=== PATIENT | male | born 1965 | race Caucasian/White ===

== ENCOUNTER 2016-10-07 16:06 | Inpatient (IN) | payer MEDICARE, OTHER ==
[~2016-10-07] VITALS: Ht 170.2 cm; Wt 67.8 kg
[~2016-10-07 16:06] MED LIST: ASPIRIN EC81 MG PO; CALCIUM ACETAT667 M1 PO; CATAPRES 0.1MG0.1 MG PO; CELEXA10 MG PO; CILOSTAZOL50 MG PO; CLINDAMYCIN HC300 MG PO; COREG 12.5MG12.5 MG PO; COREG 25MG TAB25 MG PO; CREON DR 24,001 EACH PO; ENDOCET 5-3251 EACH PO; FLORASTOR250 MG PO; HYDRALAZINE HCL50 MG PO; MEGACE TAB 40 M40 MG PO; NEURONTIN 300300 MG PO; NEXIUM40 MG PO; PLAVIX75 MG PO; REQUIP1 MG PO; SEROQUEL25 MG PO; SYNTHROID150 MCG PO; TIZANIDINE HCL4 MG PO
[2016-10-07 21:41] LABS: HEMOGLOBIN 8.2 gm/dl (14.0-17.5); RED BLOOD COUNT 2.64 M/UL (4.20-5.50); WHITE BLOOD COUNT 16.9 K/UL (4.5-11.0)
[2016-10-08 05:15] LABS: HEMOGLOBIN 7.5 gm/dl (14.0-17.5); RED BLOOD COUNT 2.46 M/UL (4.20-5.50); WHITE BLOOD COUNT 13.6 K/UL (4.5-11.0)
[2016-10-09 05:09] LABS: HEMOGLOBIN 7.7 gm/dl (14.0-17.5); RED BLOOD COUNT 2.5 M/UL (4.20-5.50); WHITE BLOOD COUNT 12.4 K/UL (4.5-11.0)
[2016-10-12 06:05] LABS: HEMOGLOBIN 7.5 gm/dl (14.0-17.5); RED BLOOD COUNT 2.48 M/UL (4.20-5.50); WHITE BLOOD COUNT 11.3 K/UL (4.5-11.0)
[2016-10-13 05:04] LABS: HEMOGLOBIN 7.4 gm/dl (14.0-17.5); RED BLOOD COUNT 2.42 M/UL (4.20-5.50); WHITE BLOOD COUNT 12.5 K/UL (4.5-11.0)
[2016-10-14 05:20] LABS: HEMOGLOBIN 7.4 gm/dl (14.0-17.5); RED BLOOD COUNT 2.43 M/UL (4.20-5.50)
[2016-10-14] MEDS ORDERED: CIPRO500 MG PO (11:28)
[2016-10-14] MEDS ORDERED: LIPITOR TAB 2020 MG PO (11:28)
[2016-10-14] MEDS ORDERED: FOLIC ACID 1 MG1 MG PO (11:29)
[2016-10-14] MEDS ORDERED: PERCOCET 5-3251 EACH PO (11:29)
[2016-10-14] MEDS ORDERED: NEPRO CARB ST1000 ML PO (11:30)
[2016-10-14] MEDS ORDERED: [UNRECOGNIZED DRUG - CODE] INJ (13:07)
[2016-10-14] MEDS ORDERED: NOVOLOG100 UNIT/1 SQ (13:09)
== END 2016-10-14 13:50 | disposition home or self-care (01) | DRG 299 ==
LOC: ER1 16:06 → MED SURG 4 22:30 → ZEROF 22:30 → MED SURG 4 10-08 00:25
PROVIDERS: Emergency Medicine; Internal Medicine; Internal Medicine Nephrology; Physician Assistant; ADMIT Internal Medicine
DX: E11.52 Type 2 diabetes mellitus with diabetic peripheral angiopathy with gangrene (principal); N18.6 End stage renal disease; L03.115 Cellulitis of right lower limb; L03.116 Cellulitis of left lower limb; E11.65 Type 2 diabetes mellitus with hyperglycemia; Z99.2 Dependence on renal dialysis; D63.1 Anemia in chronic kidney disease; Z79.4 Long term (current) use of insulin; M79.604 Pain in right leg; M79.605 Pain in left leg; S80.821A Blister (nonthermal), right lower leg, initial encounter; S80.822A Blister (nonthermal), left lower leg, initial encounter; Z98.890 Other specified postprocedural states; E03.9 Hypothyroidism, unspecified; Z86.73 Personal history of transient ischemic attack (TIA), and cerebral infarction without residual deficits; K21.9 Gastro-esophageal reflux disease without esophagitis; Z88.5 Allergy status to narcotic agent; Z88.1 Allergy status to other antibiotic agents; Z82.49 Family history of ischemic heart disease and other diseases of the circulatory system; Z82.5 Family history of asthma and other chronic lower respiratory diseases; F17.210 Nicotine dependence, cigarettes, uncomplicated; I87.393 Chronic venous hypertension (idiopathic) with other complications of bilateral lower extremity; D47.3 Essential (hemorrhagic) thrombocythemia; Z79.899 Other long term (current) drug therapy; Z79.02 Long term (current) use of antithrombotics/antiplatelets
CPT/HCPCS: 36415; 73590; 73630; 80048; 80053; 80202; 82962; 83605; 83735; 85025; 85027; 86140; 87040; 96374; 96375; 99284; J0885; J1335; J1644; J2270; J2405; J2550; J3370; J7050; J7070

== ENCOUNTER 2016-10-19 05:15 | Inpatient (IN) | payer MEDICARE, OTHER ==
[~2016-10-19] VITALS: Ht 170.2 cm; Wt 70.4 kg
[~2016-10-19 05:15] MED LIST changes: +CIPRO500 MG PO; +FOLIC ACID 1 MG1 MG PO; +LIPITOR TAB 2020 MG PO; +NEPRO CARB ST1000 ML PO; +NOVOLOG100 UNIT/1 SQ; +PERCOCET 5-3251 EACH PO; +[UNRECOGNIZED DRUG - CODE] INJ
[2016-10-19 06:42] LABS: HEMOGLOBIN 8.3 gm/dl (14.0-17.5); RED BLOOD COUNT 2.7 M/UL (4.20-5.50); WHITE BLOOD COUNT 18.1 K/UL (4.5-11.0)
[2016-10-19] MEDS ORDERED: MEGACE400 MG/10 PO (14:10)
[2016-10-19] MEDS ORDERED: PHOSLO 667 MG667 MG PO ×2 (14:11→14:12)
[2016-10-20 04:40] LABS: WHITE BLOOD COUNT 10.6 K/UL (4.5-11.0)
[2016-10-20 04:41] LABS: RED BLOOD COUNT 1.91 M/UL (4.20-5.50)
[2016-10-21 02:53] LABS: HEMOGLOBIN 9.2 gm/dl (14.0-17.5); RED BLOOD COUNT 3.05 M/UL (4.20-5.50); WHITE BLOOD COUNT 15.7 K/UL (4.5-11.0)
[2016-10-22 04:25] LABS: HEMOGLOBIN 9.6 gm/dl (14.0-17.5); RED BLOOD COUNT 3.22 M/UL (4.20-5.50)
--- NOTE | 2016-10-23 01:17 | NUR ---
10/22/162114 PT IS BEING VERY ANXIOUS, TALKING ON THE TV CONTROLLER LIKE IT IS A TELEPHONE. CARRYING ON CONVERSATIONS WITH HIMSELF. ANGRY THAT HIS IS NOT UP HERE. ALTERNATING BETWEEEN ANGRY, ANXIOUS, CRYING, PARANOIA AND HALLUCINATIONS. ATTEMPT TO GET HIM TO EAT BUT REFUSES. WANTS TO GO HOME. THINKS HE SEES HIS IN THE CONDE.
[2016-10-24 05:51] LABS: HEMOGLOBIN 9.2 gm/dl (14.0-17.5)
[2016-10-26 05:57] LABS: HEMOGLOBIN 9.5 gm/dl (14.0-17.5); RED BLOOD COUNT 3.19 M/UL (4.20-5.50); WHITE BLOOD COUNT 11.2 K/UL (4.5-11.0)
[2016-10-27 05:14] LABS: HEMOGLOBIN 9.4 gm/dl (14.0-17.5); RED BLOOD COUNT 3.16 M/UL (4.20-5.50); WHITE BLOOD COUNT 12.3 K/UL (4.5-11.0)
== END 2016-10-27 21:42 | disposition home or self-care (01) | DRG 299 ==
LOC: ER1 05:15 → ZEROF 10:45 → PROG CARE 10:45 → M/S 10:45 → PROG CARE 13:01 → M/S 10-23 16:19
PROVIDERS: Emergency Medicine; Hospitalist; Internal Medicine Infectious Disease; Internal Medicine Nephrology; Surgery; ADMIT Internal Medicine
PROC: 5A1D60Z (ICD-10-PCS; 2016-10-19)
PROC: 04HK33Z Insertion of Infusion Device into Right Femoral Artery, Percutaneous Approach (ICD-10-PCS; 2016-10-19)
PROC: B54BZZA Ultrasonography of Right Lower Extremity Veins, Guidance (ICD-10-PCS; 2016-10-19)
PROC: 30233N1 Transfusion of Nonautologous Red Blood Cells into Peripheral Vein, Percutaneous Approach (ICD-10-PCS; 2016-10-20)
PROC: 30233N1 Transfusion of Nonautologous Red Blood Cells into Peripheral Vein, Percutaneous Approach (ICD-10-PCS; 2016-10-20)
PROC: 0DJ08ZZ Inspection of Upper Intestinal Tract, Via Natural or Artificial Opening Endoscopic (ICD-10-PCS; 2016-10-23)
PROC: 02HV33Z Insertion of Infusion Device into Superior Vena Cava, Percutaneous Approach (ICD-10-PCS; 2016-10-26)
PROC: B518ZZA Fluoroscopy of Superior Vena Cava, Guidance (ICD-10-PCS; 2016-10-26)
PROC: 0JH63XZ Insertion of Tunneled Vascular Access Device into Chest Subcutaneous Tissue and Fascia, Percutaneous Approach (ICD-10-PCS; principal; 2016-10-26 15:45)
DX: E10.52 Type 1 diabetes mellitus with diabetic peripheral angiopathy with gangrene (principal); G93.41 Metabolic encephalopathy; N18.6 End stage renal disease; I70.263 Atherosclerosis of native arteries of extremities with gangrene, bilateral legs; I12.0 Hypertensive chronic kidney disease with stage 5 chronic kidney disease or end stage renal disease; K22.10 Ulcer of esophagus without bleeding; N17.9 Acute kidney failure, unspecified; L97.429 Non-pressure chronic ulcer of left heel and midfoot with unspecified severity; L97.419 Non-pressure chronic ulcer of right heel and midfoot with unspecified severity; I85.10 Secondary esophageal varices without bleeding; K76.6 Portal hypertension; E10.65 Type 1 diabetes mellitus with hyperglycemia; E10.21 Type 1 diabetes mellitus with diabetic nephropathy; E10.22 Type 1 diabetes mellitus with diabetic chronic kidney disease; E10.621 Type 1 diabetes mellitus with foot ulcer; D63.1 Anemia in chronic kidney disease; K70.30 Alcoholic cirrhosis of liver without ascites; D50.9 Iron deficiency anemia, unspecified; E03.9 Hypothyroidism, unspecified; E78.5 Hyperlipidemia, unspecified; K21.9 Gastro-esophageal reflux disease without esophagitis; K31.84 Gastroparesis; G25.3 Myoclonus; F17.210 Nicotine dependence, cigarettes, uncomplicated; R62.7 Adult failure to thrive; J32.9 Chronic sinusitis, unspecified; Z99.2 Dependence on renal dialysis; Z98.62 Peripheral vascular angioplasty status; Z96.41 Presence of insulin pump (external) (internal); Z86.73 Personal history of transient ischemic attack (TIA), and cerebral infarction without residual deficits; Z79.02 Long term (current) use of antithrombotics/antiplatelets; Z79.82 Long term (current) use of aspirin; Z79.891 Long term (current) use of opiate analgesic; Z79.899 Other long term (current) drug therapy; Z88.5 Allergy status to narcotic agent; Z88.0 Allergy status to penicillin; Z98.890 Other specified postprocedural states; Z82.49 Family history of ischemic heart disease and other diseases of the circulatory system; Z83.3 Family history of diabetes mellitus; Z82.5 Family history of asthma and other chronic lower respiratory diseases
CPT/HCPCS: 36415; 70450; 71010; 73630; 73718; 76705; 77001; 80048; 80053; 80202; 82140; 82962; 83605; 83735; 84132; 84484; 85014; 85018; 85025; 85027; 85610; 85730; 86140; 86850; 86900; 86901; 86920; 87040; 90935; 90937; 93005; 93925; 99285; C1752; C1769; J0885; J1630; J1642; J1644; J1650; J1817; J1956; J2060; J2250; J2270; J2550; J3010; J3370; J3430; J7030; J7040; J7050; J7070; J7120; P9016; P9047

== ENCOUNTER 2016-11-24 22:14 | Inpatient (IN) | payer MEDICARE, OTHER ==
[~2016-11-24] VITALS: Ht 170.2 cm; Wt 69.4 kg
[~2016-11-24 22:14] MED LIST changes: +MEGACE400 MG/10 PO; +PHOSLO 667 MG667 MG PO
[2016-11-25 03:19] LABS: HEMOGLOBIN 8.9 gm/dl (14.0-17.5); RED BLOOD COUNT 2.96 M/UL (4.20-5.50); WHITE BLOOD COUNT 13.9 K/UL (4.5-11.0)
[2016-11-26 06:02] LABS: HEMOGLOBIN 9.6 gm/dl (14.0-17.5); RED BLOOD COUNT 3.17 M/UL (4.20-5.50); WHITE BLOOD COUNT 11.1 K/UL (4.5-11.0)
[2016-11-27 07:47] LABS: HEMOGLOBIN 9.7 gm/dl (14.0-17.5); RED BLOOD COUNT 3.22 M/UL (4.20-5.50)
[2016-11-27 07:52] LABS: WHITE BLOOD COUNT 16.6 K/UL (4.5-11.0)
[2016-11-28 04:28] LABS: RED BLOOD COUNT 2.48 M/UL (4.20-5.50); WHITE BLOOD COUNT 12.2 K/UL (4.5-11.0)
[2016-11-28 04:29] LABS: HEMOGLOBIN 7.4 gm/dl (14.0-17.5)
[2016-11-28 13:51] LABS: HEMOGLOBIN 7.6 gm/dl (14.0-17.5); RED BLOOD COUNT 2.54 M/UL (4.20-5.50); WHITE BLOOD COUNT 13.4 K/UL (4.5-11.0)
[2016-11-29 06:39] LABS: WHITE BLOOD COUNT 13.3 K/UL (4.5-11.0)
[2016-11-29 06:40] LABS: HEMOGLOBIN 9.6 gm/dl (14.0-17.5); RED BLOOD COUNT 3.19 M/UL (4.20-5.50)
[2016-11-30 04:14] LABS: HEMOGLOBIN 9.4 gm/dl (14.0-17.5); RED BLOOD COUNT 3.14 M/UL (4.20-5.50); WHITE BLOOD COUNT 14.6 K/UL (4.5-11.0)
[2016-12-01 05:04] LABS: HEMOGLOBIN 8.4 gm/dl (14.0-17.5); WHITE BLOOD COUNT 13.3 K/UL (4.5-11.0)
[2016-12-01 05:07] LABS: RED BLOOD COUNT 2.81 M/UL (4.20-5.50)
[2016-12-02 05:33] LABS: HEMOGLOBIN 8.2 gm/dl (14.0-17.5); RED BLOOD COUNT 2.71 M/UL (4.20-5.50); WHITE BLOOD COUNT 11.9 K/UL (4.5-11.0)
== END 2016-12-02 16:30 | DRG 239 ==
LOC: ER1 22:14 → ZEROF 11-25 06:55 → M/S 11-25 06:55
PROVIDERS: Emergency Medicine; Internal Medicine; Internal Medicine Infectious Disease; Internal Medicine Nephrology; Orthopaedic Surgery; ADMIT Internal Medicine
PROC: 5A1D60Z (ICD-10-PCS; 2016-11-25)
PROC: 0Y6J0Z3 Detachment at Left Lower Leg, Low, Open Approach (ICD-10-PCS; principal; 2016-11-27 10:30)
PROC: 30233N1 Transfusion of Nonautologous Red Blood Cells into Peripheral Vein, Percutaneous Approach (ICD-10-PCS; 2016-11-28)
DX: E10.52 Type 1 diabetes mellitus with diabetic peripheral angiopathy with gangrene (principal); N18.6 End stage renal disease; I12.0 Hypertensive chronic kidney disease with stage 5 chronic kidney disease or end stage renal disease; I70.263 Atherosclerosis of native arteries of extremities with gangrene, bilateral legs; L97.429 Non-pressure chronic ulcer of left heel and midfoot with unspecified severity; L97.419 Non-pressure chronic ulcer of right heel and midfoot with unspecified severity; D62 Acute posthemorrhagic anemia; E46 Unspecified protein-calorie malnutrition; E10.22 Type 1 diabetes mellitus with diabetic chronic kidney disease; E10.621 Type 1 diabetes mellitus with foot ulcer; E10.65 Type 1 diabetes mellitus with hyperglycemia; D63.1 Anemia in chronic kidney disease; J44.9 Chronic obstructive pulmonary disease, unspecified; E03.9 Hypothyroidism, unspecified; E78.5 Hyperlipidemia, unspecified; K21.9 Gastro-esophageal reflux disease without esophagitis; G62.9 Polyneuropathy, unspecified; F17.200 Nicotine dependence, unspecified, uncomplicated; Z99.2 Dependence on renal dialysis; Z86.73 Personal history of transient ischemic attack (TIA), and cerebral infarction without residual deficits; Z96.41 Presence of insulin pump (external) (internal); Z68.23 Body mass index [BMI] 23.0-23.9, adult; Z99.81 Dependence on supplemental oxygen; Z79.02 Long term (current) use of antithrombotics/antiplatelets; Z79.818 Long term (current) use of other agents affecting estrogen receptors and estrogen levels; Z79.891 Long term (current) use of opiate analgesic; Z79.82 Long term (current) use of aspirin; Z79.899 Other long term (current) drug therapy; Z88.5 Allergy status to narcotic agent; Z88.0 Allergy status to penicillin; Z88.8 Allergy status to other drugs, medicaments and biological substances; Z98.890 Other specified postprocedural states
CPT/HCPCS: 36415; 71010; 73630; 80048; 80053; 80202; 82728; 82962; 83036; 83540; 83550; 83605; 83690; 84100; 84443; 84466; 85025; 85027; 85610; 85730; 86850; 86900; 86901; 86920; 87040; 90935; 90937; 93925; 94640; 94664; 96374; 97110; 97530; 99284; J0885; J1610; J1644; J1650; J2405; J2765; J3370; J7030; J7070; J7120; P9016